=== PATIENT | male | born 1985 | race Two or more races ===

== ENCOUNTER 2016-11-12 09:21 | Emergency (ER) | payer MEDICAID ==
[~2016-11-12] VITALS: Ht 177.8 cm; Wt 75.0 kg
[2016-11-12] MEDS ORDERED: SODIUM CHLORIDE 0.9% 1,000 ML IV ONE ×2 (10:30→11:50)
[2016-11-12] MEDS ORDERED: MORPHINE SULFATE 4 MG/ML CPJ (NOT FOR IM USE) IV STA (10:30)
[2016-11-12] MEDS ORDERED: ONDANSETRON HCL 4MG/2ML VIAL IV STA (10:30)
[2016-11-12 10:47] LABS: BASOPHILS % 0.8 % (0.0-2.0); EOSINOPHILS % 0.1 % (0.0-5.0); HEMATOCRIT. 38.3 % (42.0-52.0); HEMOGLOBIN. 13.7 g/dL (14.0-18.0); LYMPHOCYTES % 15.6 % (20.0-50.0); MEAN CORPUSCULAR VOLUME 92.2 fL (80.0-94.0); MEAN PLATELET VOLUME 7.1 fl (7.4-10.4); MONOCYTES % 3.1 % (2.0-8.0); NEUTROPHILS % 80.4 % (40.0-76.0); PLATELET 404 x1000/uL (130-400); RED BLOOD CELL COUNT 4.15 mill/uL (4.7-6.1); RED CELL DISTRIBUTION WIDTH 12.9 % (11.6-14.6)
[2016-11-12 10:52] LABS: CHLORIDE 106 mEq/L (98-107)
[2016-11-12 11:02] LABS: CARBON DIOXIDE 27 mEq/L (21-32)
[2016-11-12] MEDS ORDERED: FAMOTIDINE 20MG/2ML VIAL IV ONE (11:15)
[2016-11-12] MEDS ORDERED: ONDANSETRON HCL 4MG/2ML VIAL IV ONE (11:15)
[2016-11-12] MEDS ORDERED: LORAZEPAM 2MG/ML CPJ IV ONE (11:15)
[2016-11-12 11:32] LABS: INR 1.1; PROTHROMBIN TIME 11.1 sec
[2016-11-12] MEDS ORDERED: METOCLOPRAMIDE HCL 10MG/2ML VIAL IV ONE (11:45)
[2016-11-12] MEDS ORDERED: KETOROLAC 30MG/ML VIAL IV ONE (13:30)
[2016-11-12 13:43] VITALS: BP 136/88
== END 2016-11-12 13:58 | disposition home or self-care (01) ==
LOC: ER 09:30
DX: R10.9 Unspecified abdominal pain (principal); K50.90 Crohn's disease, unspecified, without complications
CPT/HCPCS: 36415; 71010; 74176; 80053; 83690; 85025; 85610; 93005; 96361; 96374; 96375; 96376; 99285; J1885; J2060; J2270; J2405; J2765; J3490; J7030; Z7610

== ENCOUNTER 2017-08-21 20:54 | Emergency (ER) | payer MEDICAID, MEDICARE ==
[~2017-08-21] VITALS: Ht 190.5 cm; Wt 80.0 kg
[2017-08-21] MEDS ORDERED: FAMOTIDINE 20MG/2ML VIAL IV STA (21:41)
[2017-08-21] MEDS ORDERED: MORPHINE SULFATE 4 MG/ML CPJ (NOT FOR IM USE) IV STA (21:41)
[2017-08-21] MEDS ORDERED: SODIUM CHLORIDE 0.9% 1,000 ML IV ONE (21:41)
[2017-08-21] MEDS ORDERED: ONDANSETRON HCL 4MG/2ML VIAL IV STA (21:41)
[2017-08-21] MEDS ORDERED: LORAZEPAM 2MG/ML CPJ IV ONE ×2 (21:45→22:45)
[2017-08-21 22:40] LABS: BASOPHILS % 0.1 % (0.0-2.0); HEMOGLOBIN. 16.6 g/dL (14.0-18.0); LYMPHOCYTES % 2.8 % (20.0-50.0); MEAN CORPUSCULAR HEMOGLOBIN 32.3 pg (28.0-32.0); MEAN CORPUSCULAR VOLUME 93.2 fL (80.0-94.0); MEAN PLATELET VOLUME 7.4 fl (7.4-10.4); MONOCYTES % 3.8 % (2.0-8.0); NEUTROPHILS % 93.3 % (40.0-76.0); PLATELET 395 x1000/uL (130-400); RED BLOOD CELL COUNT 5.15 mill/uL (4.7-6.1); RED CELL DISTRIBUTION WIDTH 12.9 % (11.6-14.6)
[2017-08-21] MEDS ORDERED: METOCLOPRAMIDE HCL 10MG/2ML VIAL IV ONE (22:45)
[2017-08-21 22:46] LABS: CHLORIDE 97 mEq/L (98-107)
[2017-08-21 22:50] LABS: INR 1.1; PARTIAL THROMBOPLASTIN TIME 27.4 sec (23.4-31.0)
[2017-08-21] MEDS ORDERED: VANCOMYCIN 2,000 MG in DEXT 5% WATER 500 ML IV SCH (23:30)
[2017-08-21] MEDS ORDERED: MORPHINE SULFATE 4 MG/ML CPJ (NOT FOR IM USE) IV ONE (23:30)
[2017-08-21] MEDS ORDERED: PIPERACILLIN SODIUM/TAZOBACTAM 4.5 G in DEXT 5% WATER 100 ML IV SCH (23:30)
[2017-08-21] MEDS ORDERED: SODIUM CHLORIDE 0.9% 1000ML BAG (SEPSIS BOLUS) IV ONE (23:36)
[2017-08-22] MEDS ORDERED: MORPHINE SULFATE 4 MG/ML CPJ (NOT FOR IM USE) IV ONE (01:15)
[2017-08-22] MEDS ORDERED: LORAZEPAM 2MG/ML CPJ IV ONE (01:15)
[2017-08-22] MEDS ORDERED: MORPHINE SULFATE 4 MG/ML CPJ (NOT FOR IM USE) IV SCH (01:25)
[2017-08-22] MEDS ORDERED: LORAZEPAM 2MG/ML CPJ IV SCH (01:25)
[2017-08-22] MEDS ORDERED: HALOPERIDOL LACTATE 5MG/ML VIAL IM SCH (02:00)
[2017-08-22] MEDS ORDERED: DIPHENHYDRAMINE 50MG/ML VIAL IV ONE (02:00)
[2017-08-22] MEDS ORDERED: MORPHINE SULFATE 10 MG/ML CPJ IV ONE (03:15)
[2017-08-22 03:38] VITALS: BP 150/85
== END 2017-08-22 04:55 | disposition left against medical advice (07) ==
LOC: ER 20:54 → ENRESERV 08-22 01:44 → ER 08-22 04:55 → CANBEDREQ 08-22 05:32
DX: A41.9 Sepsis, unspecified organism (principal); R10.9 Unspecified abdominal pain; N17.9 Acute kidney failure, unspecified; E87.2 Acidosis; R11.10 Vomiting, unspecified; F41.9 Anxiety disorder, unspecified; K58.9 Irritable bowel syndrome, unspecified; Z87.19 Personal history of other diseases of the digestive system; Y93.E1 Activity, personal bathing and showering
CPT/HCPCS: 36415; 51701; 71045; 74176; 80053; 83605; 83690; 85025; 85610; 85730; 87040; 99291; J1200; J1630; J2060; J2270; J2405; J2543; J2765; J3370; J3490; J7030; J7040; Z7610; J7060

== ENCOUNTER 2018-08-05 16:03 | Emergency (ER) | payer MEDICARE ==
[~2018-08-05] VITALS: Ht 182.9 cm; Wt 80.0 kg
[2018-08-05] MEDS ORDERED: ONDANSETRON HCL 4MG/2ML INJ IV STA (16:45)
[2018-08-05] MEDS ORDERED: FAMOTIDINE 20MG/2ML VIAL IV ONE (16:45)
[2018-08-05] MEDS ORDERED: KETOROLAC 30MG/ML VIAL IV STA (16:45)
[2018-08-05] MEDS ORDERED: MAGNESIUM/ALUMINUM HYDROXIDE/SIMETHICONE 30ML UDC PO ONE (16:45)
[2018-08-05] MEDS ORDERED: MORPHINE SULFATE 4 MG/ML CPJ (NOT FOR IM USE) IV STA (16:45)
[2018-08-05] MEDS ORDERED: SODIUM CHLORIDE 0.9% 1,000 ML IV ONE ×2 (16:45→18:50)
[2018-08-05 17:36] LABS: CHLORIDE 96 mEq/L (98-107)
[2018-08-05 17:38] LABS: INR 1.1; PARTIAL THROMBOPLASTIN TIME 28.9 sec (23.4-31.0); PROTHROMBIN TIME 10.9 sec (9.1-11.1)
[2018-08-05 17:39] LABS: HEMATOCRIT. 49.8 % (42.0-52.0); HEMOGLOBIN. 16.8 g/dL (14.0-18.0); MEAN CORPUSCULAR HEMOGLOBIN 31.7 pg (28.0-32.0); MEAN CORPUSCULAR VOLUME 93.9 fL (80.0-94.0); MEAN PLATELET VOLUME 8.2 fl (7.4-10.4); PLATELET 428 x1000/uL (130-400); RED CELL DISTRIBUTION WIDTH 13.4 % (11.6-14.6)
[2018-08-05 17:42] LABS: ETHANOL BLOOD < 10 mg/dL
[2018-08-05 17:46] LABS: CREATINE KINASE 182 IU/L (39-308)
[2018-08-05 17:49] LABS: CREATINE KINASE MB FRACTION 1.7 ng/mL (0.5-3.6)
[2018-08-05 18:27] LABS: PLATELET ESTIMATE NORMAL
[2018-08-05] MEDS ORDERED: ONDANSETRON HCL 4MG/2ML INJ IV ONE ×2 (18:30→20:45)
[2018-08-05] MEDS ORDERED: METOCLOPRAMIDE HCL 10MG/2ML VIAL IV ONE (19:00)
[2018-08-05] MEDS ORDERED: MORPHINE SULFATE 4 MG/ML CPJ (NOT FOR IM USE) IV ONE ×2 (19:00→20:45)
[2018-08-05] MEDS ORDERED: PIPERACILLIN/TAZ 3.375G PREMIX 50 ML IV ONE (19:00)
[2018-08-05] MEDS ORDERED: METRONIDAZOLE 500 MG PREMIX 100 ML IV ONE (19:00)
[2018-08-05 21:16] VITALS: BP 121/89
== END 2018-08-05 21:26 | disposition short-term general hospital (02) ==
LOC: ER 16:09 → CANBEDREQ 19:39 → ER 21:26
DX: K50.90 Crohn's disease, unspecified, without complications (principal); R11.2 Nausea with vomiting, unspecified; D72.829 Elevated white blood cell count, unspecified; N17.9 Acute kidney failure, unspecified; F41.9 Anxiety disorder, unspecified; K21.9 Gastro-esophageal reflux disease without esophagitis
CPT/HCPCS: 36415; 74176; 80053; 80320; 82550; 82553; 83690; 83880; 84484; 85025; 85610; 85730; 96361; 96365; 96368; 96375; 96376; 99285; J1885; J2270; J2405; J2543; J2765; J3490; J7030; Z7610; G0480

== ENCOUNTER 2019-03-28 16:15 | Inpatient (IN) | payer MEDICAID, MEDICARE ==
[~2019-03-28] VITALS: Ht 188 cm; Wt 79.2 kg
[2019-03-28] MEDS ORDERED: SODIUM CHLORIDE 0.9% 1,000 ML IV ONE ×2 (16:30→19:00)
[2019-03-28] MEDS ORDERED: MORPHINE SULFATE 4 MG/ML CPJ (NOT FOR IM USE) IV STA (16:30)
[2019-03-28] MEDS ORDERED: ONDANSETRON HCL 4MG/2ML INJ IV STA (16:30)
[2019-03-28] MEDS ORDERED: LORAZEPAM 2MG/ML CPJ IV ONE ×2 (16:30→18:30)
[2019-03-28 16:57] LABS: HEMATOCRIT. 50.6 % (42.0-52.0); HEMOGLOBIN. 17.4 g/dL (14.0-18.0); MEAN CORPUSCULAR HEMOGLOBIN 31.7 pg (28.0-32.0); MEAN CORPUSCULAR VOLUME 92.3 fL (80.0-94.0); MEAN PLATELET VOLUME 7.7 fl (7.4-10.4); PLATELET 431 x1000/uL (130-400); RED BLOOD CELL COUNT 5.48 mill/uL (4.7-6.1); RED CELL DISTRIBUTION WIDTH 13.1 % (11.6-14.6)
[2019-03-28 17:07] LABS: INR 1.1; PARTIAL THROMBOPLASTIN TIME 29.1 sec (23.4-31.0); PROTHROMBIN TIME 10.8 sec (9.6-11.0)
[2019-03-28 17:09] LABS: PLATELET ESTIMATE INCREASED
[2019-03-28] MEDS ORDERED: METOCLOPRAMIDE HCL 10MG/2ML VIAL IV ONE (18:30)
[2019-03-28] MEDS ORDERED: KETOROLAC 30MG/ML VIAL IV ONE (18:30)
[2019-03-28] MEDS ORDERED: METRONIDAZOLE 500 MG PREMIX 100 ML IV ONE (18:45)
[2019-03-28] MEDS ORDERED: PIPERACILLIN/TAZ 3.375G PREMIX 50 ML IV ONE (18:45)
[2019-03-28] MEDS ORDERED: ONDANSETRON HCL 4MG/2ML INJ IV ONE (20:15)
[2019-03-28] MEDS ORDERED: MORPHINE SULFATE 10 MG/ML CPJ IV ONE (20:15)
[2019-03-28 21:17] LABS: CHLORIDE 101 mEq/L (98-107)
[2019-03-28 21:23] LABS: ETHANOL BLOOD < 10 mg/dL
[2019-03-28] MEDS ORDERED: KCL 20MEQ/100ML PREMIX 100 ML IV ONE (21:30)
[2019-03-28 22:05] VITALS: BP 134/85
[2019-03-28 22:22] VITALS: BP 135/85
[2019-03-28] MEDS: MORPHINE SULFATE 4 MG/ML CPJ (NOT FOR IM USE) IV PRN (22:47)
[2019-03-28] MEDS ORDERED: METHADONE HCL 10MG TABLET PO NR (23:51)
[2019-03-28] MEDS ORDERED: METH10OR11 PO (23:52)
[2019-03-29] VITALS (7 sets, daily range): BP systolic 92–144; BP diastolic 52–82
[2019-03-29] MEDS ORDERED: ONDANSETRON HCL 4MG/2ML INJ IV PRN
[2019-03-29] MEDS: DEXT 5%/0.45% NACL KCL 20MEQ/L 1,000 ML IV SCH ×3 (00:07→16:00)
[2019-03-29 01:47] LABS: CLARITY URINE TURBID (CLEAR); COLOR URINE YELLOW (YELLOW); KETONES URINE 1+ (NEGATIVE); LEUKOCYTE ESTERASE URINE NEGATIVE (NEGATIVE); NITRITE URINE NEGATIVE (NEGATIVE); OCCULT BLOOD URINE 1+ (NEGATIVE); PROTEIN URINE 2+ (NEGATIVE); SPECIFIC GRAVITY URINE 1.024 (1.005-1.030); UROBILINOGEN URINE 0.2 E.U./dL (0.2-1.0)
[2019-03-29 02:43] LABS: *AMPHETAMINES SCREEN URINE NEGATIVE (NEGATIVE); *BARBITURATES SCREEN URINE NEGATIVE (NEGATIVE); *BENZODIAZEPINES SCREEN URINE NEGATIVE (NEGATIVE); *COCAINE SCREEN URINE NEGATIVE (NEGATIVE); CANNABINOID URINE SCREEN PRESUMTIVE POSITIVE (NEGATIVE); METHADONE URINE SCREEN PRESUMTIVE POSITIVE (NEGATIVE); OPIATES URINE SCREEN PRESUMTIVE POSITIVE (NEGATIVE); PHENCYCLIDINE URINE SCREEN NEGATIVE (NEGATIVE)
[2019-03-29] MEDS: PIPERACILLIN/TAZOBACTAM 2.25 G in DEXTROSE 5% WATER 50 ML IV SCH ×3 (04:33→20:51)
[2019-03-29] MEDS: METRONIDAZOLE 500 MG PREMIX 100 ML IV SCH ×3 (05:33→21:32)
[2019-03-29] MEDS: MORPHINE SULFATE 4 MG/ML CPJ (NOT FOR IM USE) IV PRN ×2 (08:56→22:10)
[2019-03-29] MEDS ORDERED: METHADONE HCL 10MG TABLET PO SCH (09:00)
[2019-03-29 09:10] LABS: BASOPHILS % 0.4 % (0.0-2.0); HEMATOCRIT. 37.2 % (42.0-52.0); HEMOGLOBIN. 12.6 g/dL (14.0-18.0); MEAN CORPUSCULAR HEMOGLOBIN 31.6 pg (28.0-32.0); MEAN CORPUSCULAR VOLUME 93.3 fL (80.0-94.0); MEAN PLATELET VOLUME 7.7 fl (7.4-10.4); MONOCYTES % 8.3 % (2.0-8.0); NEUTROPHILS % 81.3 % (40.0-76.0); PLATELET 292 x1000/uL (130-400); RED BLOOD CELL COUNT 3.99 mill/uL (4.7-6.1); RED CELL DISTRIBUTION WIDTH 12.8 % (11.6-14.6)
[2019-03-29 09:17] LABS: CHLORIDE 107 mEq/L (98-107)
[2019-03-29] MEDS: METHADONE HCL 10MG TABLET PO SCH (09:41)
[2019-03-29] MEDS: LORAZEPAM 2MG/ML CPJ IV PRN ×2 (12:05→18:26)
[2019-03-29] MEDS: LEVOFLOXACIN 500MG PREMIX 100 ML IV SCH (13:02)
[2019-03-29] MEDS ORDERED: DIPHENHYDRAMINE 50MG/ML VIAL IV PRN (14:30)
[2019-03-29] MEDS ORDERED: BISACODYL 10MG SUPP PR PRN (14:30)
[2019-03-29] MEDS ORDERED: IPRATROPIUM/ALBUTEROL 0.5-3(2.5)MG/3ML NEB HHN PRN (14:30)
[2019-03-29] MEDS ORDERED: HYDRALAZINE 20MG/ML VIAL IV PRN (15:03)
[2019-03-29 20:32] LABS: HEPATITIS B SURFACE ANTIGEN NEGATIVE
[2019-03-29] MEDS ORDERED: FAMOTIDINE 20MG/2ML VIAL IV SCH (21:00)
[2019-03-29 21:02] LABS: HEPATITIS A AB IGM NEGATIVE (NEGATIVE)
[2019-03-30] VITALS: BP 103/62
[2019-03-30] MEDS: DEXT 5%/0.45% NACL KCL 20MEQ/L 1,000 ML IV SCH ×2 (00:03→08:08)
[2019-03-30 04:00] VITALS: BP 101/61
[2019-03-30] MEDS: PIPERACILLIN/TAZOBACTAM 2.25 G in DEXTROSE 5% WATER 50 ML IV SCH ×2 (04:09→12:00)
[2019-03-30] MEDS: LORAZEPAM 2MG/ML CPJ IV PRN (04:29)
[2019-03-30] MEDS: METRONIDAZOLE 500 MG PREMIX 100 ML IV SCH ×2 (05:43→13:54)
[2019-03-30] MEDS ORDERED: OMEPRAZOLE 20MG CAPSULE EXTENDED RELEASE PO SCH (07:10)
[2019-03-30 07:22] LABS: BASOPHILS % 0.4 % (0.0-2.0); EOSINOPHILS % 0.6 % (0.0-5.0); HEMATOCRIT. 35.3 % (42.0-52.0); HEMOGLOBIN. 12.1 g/dL (14.0-18.0); LYMPHOCYTES % 16.9 % (20.0-50.0); MEAN CORPUSCULAR HEMOGLOBIN 32.1 pg (28.0-32.0); MEAN CORPUSCULAR VOLUME 93.5 fL (80.0-94.0); MEAN PLATELET VOLUME 7.8 fl (7.4-10.4); MONOCYTES % 6.1 % (2.0-8.0); PLATELET 254 x1000/uL (130-400); RED BLOOD CELL COUNT 3.78 mill/uL (4.7-6.1)
[2019-03-30 07:33] LABS: CHLORIDE 103 mEq/L (98-107)
[2019-03-30 07:40] LABS: LDL CHOLESTEROL 83 mg/dL (5-100)
[2019-03-30 07:42] LABS: HDL CHOLESTEROL 43 mg/dL (40-59); T4 FREE 1.13 ng/dL (0.76-1.46)
[2019-03-30 08:00] VITALS: BP 107/58
[2019-03-30] MEDS: METHADONE HCL 10MG TABLET PO SCH (08:10)
[2019-03-30 12:00] VITALS: BP 112/52
[2019-03-30] MEDS: LEVOFLOXACIN 500MG PREMIX 100 ML IV SCH (12:00)
[2019-03-30 14:37] VITALS: BP 112/52
[2019-04-01 15:11] LABS: ANTI-MYELOPEROXIDASE AB < 9.0 U/mL (0.0-9.0); ANTI-PROTEINASE 3 ABS < 3.5 U/mL (0.0-3.5)
[2019-04-02 10:19] LABS: SACCHAROMYCES CEREVISIAE IGG 69.2 Units (0.0-24.9); SACCHAROMYCES CEREVISIAE IGM 35.7 Units (0.0-24.9)
[2019-04-02 15:09] LABS: ATYPICAL P-ANCA <1:20 titer (Neg:<1:20); ATYPICAL pANCA <1:20 titer (Neg:<1:20); CYTOPLASMIC C-ANCA <1:20 titer (Neg:<1:20); PERINUCLEAR P-ANCA <1:20 titer (Neg:<1:20)
== END 2019-03-30 15:13 | disposition home or self-care (01) | DRG 245 ==
LOC: ER 16:52 → 8WST 19:14 → EDBEDREQTM 19:52 → EDBEDREQ 19:52 → ENRESERV 20:37
PROVIDERS: ADMIT Internal Medicine; ATTEND Internal Medicine
DX: K50.90 Crohn's disease, unspecified, without complications (principal); N17.9 Acute kidney failure, unspecified; R17 Unspecified jaundice; E83.52 Hypercalcemia; D72.829 Elevated white blood cell count, unspecified; D64.9 Anemia, unspecified; R73.9 Hyperglycemia, unspecified; E86.0 Dehydration; E87.6 Hypokalemia; F41.9 Anxiety disorder, unspecified; K21.9 Gastro-esophageal reflux disease without esophagitis; K52.9 Noninfective gastroenteritis and colitis, unspecified; R80.9 Proteinuria, unspecified
CPT/HCPCS: 36415; 71045; 74176; 80048; 80061; 80076; 80305; 80320; 81003; 82270; 83520; 83880; 84439; 84443; 84484; 86256; 86671; 86705; 86709; 86803; 87045; 87340; 89055; 93005; 99285; J1885; J1956; J2060; J2270; J2405; J2543; J2765; J3480; J3490; J7030; J7060; G0480

== ENCOUNTER 2019-03-31 08:57 | Emergency (ER) | payer MEDICAID, MEDICARE ==
[~2019-03-31] VITALS: Ht 185.4 cm; Wt 77.0 kg
[~2019-03-31 08:57] MED LIST: METH10OR11 PO
[2019-03-31] MEDS ORDERED: MORPHINE SULFATE 2 MG/ML CPJ (NOT FOR IM USE) IV ONE (10:45)
[2019-03-31] MEDS ORDERED: ALPRAZOLAM 0.25 MG TABLET PO ONE (10:45)
[2019-03-31] MEDS ORDERED: SODIUM CHLORIDE 0.9% 500 ML IV ONE (10:45)
[2019-03-31] MEDS ORDERED: ONDANSETRON HCL 4MG/2ML INJ IM ONE (10:45)
[2019-03-31 11:42] LABS: CHLORIDE 103 mEq/L (98-107)
[2019-03-31] MEDS ORDERED: MORPHINE SULFATE 4 MG/ML CPJ (NOT FOR IM USE) IV ONE (12:45)
[2019-03-31 14:24] LABS: HEMATOCRIT. 37.5 % (42.0-52.0); MEAN CORPUSCULAR HEMOGLOBIN 32.1 pg (28.0-32.0); MEAN CORPUSCULAR VOLUME 92.8 fL (80.0-94.0); MEAN PLATELET VOLUME 7.7 fl (7.4-10.4); PLATELET 288 x1000/uL (130-400); RED BLOOD CELL COUNT 4.05 mill/uL (4.7-6.1)
[2019-03-31 14:49] LABS: PLATELET ESTIMATE NORMAL
[2019-03-31 15:20] VITALS: BP 126/82
[2019-03-31 15:26] LABS: CLARITY URINE CLEAR (CLEAR); COLOR URINE YELLOW (YELLOW); KETONES URINE 2+ (NEGATIVE); LEUKOCYTE ESTERASE URINE NEGATIVE (NEGATIVE); NITRITE URINE NEGATIVE (NEGATIVE); OCCULT BLOOD URINE 1+ (NEGATIVE); PH URINE 5.5 (4.5-8.0); PROTEIN URINE NEGATIVE (NEGATIVE); SPECIFIC GRAVITY URINE 1.023 (1.005-1.030); UROBILINOGEN URINE 0.2 E.U./dL (0.2-1.0)
[2019-04-01] MEDS ORDERED: METHADONE HCL 10MG TABLET PO SCH (09:00)
== END 2019-03-31 16:35 | disposition home or self-care (01) ==
LOC: ER 08:57
DX: R10.9 Unspecified abdominal pain (principal); K21.9 Gastro-esophageal reflux disease without esophagitis; K50.90 Crohn's disease, unspecified, without complications; F41.9 Anxiety disorder, unspecified
CPT/HCPCS: 36415; 80053; 81003; 83690; 85025; 96361; 96372; 96374; 96376; 99283; J2270; J2405; J7040

== ENCOUNTER 2019-07-02 19:14 | Emergency (ER) | payer MEDICAID, MEDICARE ==
[~2019-07-02] VITALS: Ht 188 cm; Wt 100.0 kg
[2019-07-02] MEDS ORDERED: MAGNESIUM/ALUMINUM HYDROXIDE/SIMETHICONE 30ML UDC PO STA (20:47)
[2019-07-02 21:09] LABS: HEMATOCRIT. 49.5 % (42.0-52.0); HEMOGLOBIN. 16.6 g/dL (14.0-18.0); MEAN CORPUSCULAR HEMOGLOBIN 31.5 pg (28.0-32.0); MEAN CORPUSCULAR VOLUME 93.5 fL (80.0-94.0); MEAN PLATELET VOLUME 7.7 fl (7.4-10.4); PLATELET 383 x1000/uL (130-400); RED BLOOD CELL COUNT 5.29 mill/uL (4.7-6.1)
[2019-07-02 21:10] LABS: CHLORIDE 103 mEq/L (98-107)
[2019-07-02 21:16] LABS: ETHANOL BLOOD < 10 mg/dL
[2019-07-02 21:55] LABS: PLATELET ESTIMATE NORMAL
[2019-07-02] MEDS ORDERED: KETOROLAC 60MG/2ML VIAL IM ONE (23:15)
[2019-07-02] MEDS ORDERED: ONDANSETRON 4MG ODT PO ONE (23:15)
[2019-07-02] MEDS ORDERED: SODIUM CHLORIDE 0.9% 1,000 ML IV ONE (23:39)
[2019-07-02] MEDS ORDERED: ONDANSETRON HCL 4MG/2ML INJ IV STA (23:39)
[2019-07-02] MEDS ORDERED: MORPHINE SULFATE 4 MG/ML CPJ (NOT FOR IM USE) IV STA (23:39)
[2019-07-03] MEDS ORDERED: ACETAMINOPHEN WITH CODEINE 300/30MG TABLET PO ONE (02:15)
[2019-07-03 02:20] VITALS: BP 136/94
== END 2019-07-03 02:26 | disposition short-term general hospital (02) ==
LOC: ER 19:14
DX: R10.9 Unspecified abdominal pain (principal); N19 Unspecified kidney failure; K21.9 Gastro-esophageal reflux disease without esophagitis; Z98.890 Other specified postprocedural states
CPT/HCPCS: 36415; 74176; 80053; 80320; 83690; 85025; 96361; 96372; 96374; 96375; 99285; J1885; J2270; J2405; J7030; Q0162; G0480